=== PATIENT | female | born 1995 | race African-American/Black ===

== ENCOUNTER 2020-02-27 11:23 | Outpatient (CLI) | payer SELFPAY ==
--- NOTE | 2020-02-27 13:14 | Non Stress Test Report ---
Non Stress Test Datetime Report Generated by CPN: 02/27/2020 13:14 DEMOGRAPHIC Test Number: 1 Test Number: 1 EGA NST: 40.1 INDICATION Indication for Study (NST) Other: non reactive in office VITAL SIGNS Temperature - NST: 98.2 Temperature - NST: 98.2 Pulse - NST: 120 Pulse - NST: 120 RESP - NST: 16 RESP - NST: 16 NBPSYS NST: 110 NBPSYS NST: 110 NBPDIA NST: 70 NBPDIA NST: 71 MONITORING Monitor Explained: Monitor Explained; Test Explained; Patient Verbalized Understanding Time on Monitor: 02/27/2020 11:38 Time on Monitor: 02/27/2020 11:42 Time off Monitor: 02/27/2020 12:54 Time off Monitor: 02/27/2020 12:54 NST Duration: 76 NST Duration: 72 NST INTERVENTIONS NST Interventions: PO Hydration; Reposition Patient NST Interventions: PO Hydration; Reposition Patient Physician Notified NST: K Butcher BABY A: [id number] BABY A Movement : Present Movement : Present Contraction Frequency : 2-4 Contraction Frequency : 2-4 FHR Baseline : 40-60 FHR Baseline : 145 Accelerations : 15X15 Accelerations : 15X15 Decelerations : None Decelerations : None Variability : Moderate 6-25bpm Variability : Moderate 6-25bpm NST Review: Meets Criteria for Reactive NST NST Review: Meets Criteria for Reactive NST NST Review and Verified By : Ratna Camacho RN NST Results: Reactive NST Results: Reactive NST COMMENTS NST Comments: K Butcher reviewed strip NST REPORT Report Trigger: Send Report
== END 2020-02-27 13:04 | disposition home or self-care (01) ==
LOC: LC 11:23
PROVIDERS: ATTEND Student in an Organized Health Care Education/Training Program
DX: O48.0 Post-term pregnancy (principal); Z3A.40 40 weeks gestation of pregnancy
CPT/HCPCS: 59025

== ENCOUNTER 2020-03-02 17:47 | Inpatient (IN) | payer OTHER ==
[2020-03-02] MEDS ORDERED: MAG HYDROX/AL HYDROX/SIMETH SUSP 30 ML UDCUP PO PRN (18:07)
[2020-03-02] MEDS ORDERED: DINOPROSTONE 10 MG VAGINAL INSERT.SR PV ONE (18:07)
[2020-03-02] MEDS ORDERED: RINGERS SOLUTION,LACTATED 300 ML IV ONE (18:07)
[2020-03-02] MEDS ORDERED: ACETAMINOPHEN 325 MG TABLET PO PRN (18:07)
[2020-03-02] MEDS ORDERED: OXYTOCIN/0.9 % SODIUM CHLORIDE 30 UNIT/500 ML RTUINJ IV PRN (18:07)
[2020-03-02] MEDS ORDERED: RINGERS SOLUTION,LACTATED 1,000 ML IV PRN (18:07)
[2020-03-02 18:41] LABS: APPEARANCE,URINE CLEAR; BILIRUBIN,URINE NEGATIVE (NEGATIVE); COLOR,URINE YELLOW; GLUCOSE, URINE NEGATIVE (NEGATIVE); KETONES,URINE NEGATIVE (NEGATIVE); LEUKOCYTE ESTERASE,URINE NEGATIVE (NEGATIVE); NITRITE,URINE NEGATIVE (NEGATIVE); PROTEIN,URINE NEGATIVE (NEGATIVE); URINE SPECIFIC GRAVITY 1.011; UROBILINOGEN,URINE NEGATIVE mg/dL (<2.0)
[2020-03-02 18:49] LABS: ABSOLUTE BASOPHILS # (AUTO) 0.1 10^3/uL (0.0-0.2); ABSOLUTE EOSINOPHILS # (AUTO) 0.1 10^3/uL (0.0-0.6); ABSOLUTE LYMPHOCYTES (AUTO) 2.1 10^3/uL (0.5-4.7); ABSOLUTE MONOCYTES (AUTO) 0.9 10^3/uL (0.1-1.4); BASOPHILS % (AUTO) 0.5 % (0-2); EOSINOPHILS % (AUTO) 0.9 % (0-6); HEMATOCRIT 39.5 % (36.0-47.0); HEMOGLOBIN 13.6 g/dL (12.0-15.5); LYMPHOCYTES % (AUTO) 17.3 % (13-45); MEAN CORPUSCULAR HEMOGLOBIN 29.9 pg (27.0-33.4); MEAN CORPUSCULAR HGB CONC 34.3 g/dL (32.0-36.0); MEAN CORPUSCULAR VOLUME 87 fl (80-97); MONOCYTES % (AUTO) 7.1 % (3-13); PLATELET COUNT 214 10^3/uL (150-450); RED BLOOD COUNT 4.53 10^6/uL (3.72-5.28); RED CELL DISTRIBUTION WIDTH 14.4 % (11.5-14.0); SEGMENTED NEUTROPHILS % (AUTO) 74.2 % (42-78); TOTAL CELLS COUNTED % (AUTO) 100 %; WHITE BLOOD COUNT 12.1 10^3/uL (4.0-10.5)
[2020-03-02 19:03] LABS: URINE AMPHETAMINES SCREEN NEGATIVE; URINE BARBITURATES SCREEN NEGATIVE; URINE BENZODIAZEPINES SCREEN NEGATIVE; URINE COCAINE SCREEN NEGATIVE; URINE MARIJUANA (THC) SCREEN NEGATIVE; URINE METHADONE SCREEN NEGATIVE; URINE PHENCYCLIDINE SCREEN NEGATIVE
[2020-03-02] MEDS ORDERED: DINOPROSTONE 10 MG VAGINAL INSERT.SR ONE (19:44)
--- NOTE | 2020-03-03 01:28 | Admission Physical ---
Datetime Report Generated by CPN: 03/03/2020 01:28 CURRENT ADMISSION Chief Complaint: Scheduled Induction of Labor; Other Chief Complaint Other: post dates Indication for Induction: Post Dates Admit Impression : Postterm, Intrauterine ; No Active Labor; Intact Membranes Admit Plan: Admit to Unit; Initiate Labor Induction Protocol ALLERGIES Medication Allergies: No Medication Allergies: No Known Allergies (03/02/2020) Latex: No Latex Allergies OBSTETRICAL HISTORY EDC: 02/26/2020 00:00 : 1 Para: 0 Term: 0 : 0 SAB: 0 IAB: 0 Ectopic: 0 Livin Cesareans: 0 VBACs: 0 Multiple Births: 0 Obstetrical History Comments: G1: current SEE RECORDS Alcohol: No Marijuana : No Cocaine: No Other Illicit Drugs: No Cigarettes: Never Smoker. [id number] MEDICAL HISTORY Pulmonary Disease (Asthma, TB): Yes Hosp/Surgery: Yes Medical History Comments: cyst removed from back 2011, asthma PHYSICAL EXAM General: Normal HEENT: Normal Neurologic: Normal Thyroid: Normal Heart: Normal Lungs: Normal Breast: Deferred Back: Normal Abdomen: Normal Genitourinary Exam: Normal Extremities: Normal DTRs: Normal Pelvic Type: Adequate Vital Signs: Reviewed VAGINAL EXAM Dilatation: 0 Effacement: 0 Station: -2 MEMBRANES Pooling: Negative Membranes: Intact FETUS A EGA: 40.6 Monitoring: External US FHR- Baseline: 140 Variability: Moderate 6-25bpm Decelerations: None FHR Category: Category I Estimated Weight (gm): 4000 Presentation: Vertex Admit Comment: admit for induction PLANS FOR LABOR AND DELIVERY Labor and Delivery: None Pain Management: Epidural Feeding Preference: Breast Benefit of Breast Feed Discussed: Yes INFORMED CONSENT Signature: with User ID: [email or web address]
[2020-03-03] MEDS ORDERED: ZOLPIDEM TARTRATE 5 MG TABLET ONE (01:44)
[2020-03-03] MEDS: ZOLPIDEM TARTRATE 5 MG TABLET PO PRN (01:48)
[2020-03-03] MEDS ORDERED: OXYTOCIN/0.9 % SODIUM CHLORIDE 0 UNIT/0 ML RTUINJ ONE ×2 (02:59→10:51)
[2020-03-03] MEDS ORDERED: MISOPROSTOL 0.2 MG TABLET ONE ×3 (02:59→19:37)
[2020-03-03] MEDS ORDERED: EPHEDRINE SULFATE INJ 50 MG/1 ML AMPULE ONE ×2 (02:59→11:42)
[2020-03-03] MEDS ORDERED: LIDOCAINE 1% INJ-PF (10 MG/ML) 30 ML SDV ONE ×2 (02:59→10:51)
[2020-03-03] MEDS ORDERED: OXYTOCIN 10 UNIT/ML VIAL ONE ×4 (02:59→19:39)
[2020-03-03] MEDS ORDERED: FENTANYL/BUPIVACAINE/NS/PF 0 MCG/0 ML RTUINJ EPI ONE (02:59)
[2020-03-03] MEDS ORDERED: ROPIVACAINE HCL 0.2% INJ/PF (2 MG/ML) 20 ML SDV ONE (03:00)
--- NOTE | 2020-03-03 10:31 | L&D Progress Notes ---
PROGRESS NOTES Datetime Report Generated by CPN: 03/03/2020 10:31 PROGRESS NOTE Comment: S: Pt breathing with contractions, has multiple questions about epidural placement and poc O:vss, cat II tracing, cervix as stated after cervidil removal by RN A: IUP @ 11e0l-SET secondary to post dates P: Discussed and evaluated strip with Dr. Ramachandran who agrees with no starting pitocin at this time. Will start bolus and call anesthesia for epidural placement and maki bulb depending on cervix after epidural. Consider AROM if more dilated after epidural placement. Had long discussion with patient about strip and options for continuing induction of labor. Pt declines vaginal exam prior to epidural placement, will proceed with bolus then reassess after epidural placement. Dr. Ramachandran remains in unit aware of status, plan and tracing VAGINAL EXAM Dilatation: 0 Effacement: 0 Station: -2 LAST VAGINAL EXAM-NURSING Nursing Exam Dilitation: 1.5 Nursing Exam Effacement: 80 Nursing Exam Station: -2 Nursing Exam Contractions: pt unaware of contractions MEMBRANES Pooling: Negative Membranes: Intact FETUS A : 40.6 Estimated Weight (gm): 4000 Presentation: Vertex SIGNATURE SIGNATURE: [id number];[id number];[id number] Assignment: Elsi Ramachandran MD Signature: with User ID: Quique : with User ID: Quique
[2020-03-03] MEDS ORDERED: FENTANYL/BUPIVACAINE/NS/PF 300 MCG/150 ML RTUINJ EPI ONE (11:42)
--- NOTE | 2020-03-03 13:05 | L&D Progress Notes ---
PROGRESS NOTES Datetime Report Generated by CPN: 03/03/2020 13:05 PROGRESS NOTE Impression Other: IUP @ 40w6d Procedures: Scalp Electrode; Sterile Vag Exam Plan: Continue Present Management Informed Consent Obtained: Vaginal Delivery; Section Delivery; Induction of Labor; Risks, Benefits and Alternatives Discussed Vital Signs : Reviewed; Within Normal Limits Comment: S: comfortable and pain free since epidural placement O: VSS, cat II tracing, cervix and contractions as stated A: IUP @ 40w6d- IOL stable and progressing on her own after cervidil removal AROM-clear fluid tolerated well, + scalp stimulation FSE placed without difficutlty P:Continue position changes. Dr. Ramachandran to evaluate for need of primary at this time (remote from delivery,persitent cat II tracing) VAGINAL EXAM Dilatation: 0 Effacement: 0 Station: -2 Contractions: q3-6min LAST VAGINAL EXAM-NURSING Nursing Exam Dilitation: 3.5 Nursing Exam Effacement: 100 Nursing Exam Station: -2 Nursing Exam Contractions: pt unaware of contractions MEMBRANES Pooling: Negative Membranes: Ruptured Amniotic Fluid Color: Clear FETUS A Monitoring: External US Decelerations: Late FHR Category: Category II : 40.6 Estimated Weight (gm): 4000 Presentation: Vertex SIGNATURE SIGNATURE: [id number];[id number];[id number] Assignment: Elsi Ramachandran MD Signature: with User ID: Quique : with User ID: Quique
[2020-03-03] MEDS ORDERED: BUPIVACAINE HCL 0.25 % INJ/PF (2.5 MG/1 ML) 30 ML VIAL ONE (16:31)
[2020-03-03] MEDS ORDERED: CEFAZOLIN 2 GM/D5W RTU 2 GM/50 ML RTUPB IV ONE (19:24)
[2020-03-03] MEDS ORDERED: CITRIC ACID/SODIUM CITRATE ORAL SOLN 15 ML UDCUP ONE (19:35)
[2020-03-03] MEDS ORDERED: METHYLERGONOVINE MALEATE INJ/PF 0.2 MG/1 ML AMPULE ONE (19:37)
[2020-03-03] MEDS ORDERED: LIDOCAINE 2% INJ-PF (20 MG/ML) 10 ML AMPUL ONE (19:39)
[2020-03-03] MEDS ORDERED: KETOROLAC TROMETHAMINE INJ/PF 30 MG/1 ML SDV ONE (19:39)
[2020-03-03] MEDS ORDERED: FENTANYL CITRATE INJ/PF 100 MCG/2 ML AMPUL ONE (19:39)
[2020-03-03] MEDS ORDERED: MIDAZOLAM 2 MG/2 ML INJ ONE (19:39)
[2020-03-03] MEDS ORDERED: OXYTOCIN/0.9 % SODIUM CHLORIDE 30 UNIT/500 ML RTUINJ ONE (19:40)
[2020-03-03] MEDS ORDERED: ONDANSETRON HCL INJ/PF 4 MG/2 ML SDV ONE (19:40)
[2020-03-03] MEDS ORDERED: KETAMINE HCL INJ 500 MG/10 ML VIAL ONE (19:40)
[2020-03-03] MEDS ORDERED: ACETAMINOPHEN 1,000 MG/100 ML RTUPB IV ONE (19:40)
[2020-03-03] MEDS ORDERED: PROPOFOL INJ 200 MG/20 ML VIAL IV ONE (20:37)
[2020-03-03] MEDS ORDERED: MORPHINE SULFATE 10 MG/ML INJ ONE (21:32)
[2020-03-03] MEDS ORDERED: PROMETHAZINE HCL INJ 25 MG/1 ML VIAL ONE (22:03)
[2020-03-03] MEDS ORDERED: PROMETHAZINE HCL INJ 25 MG/1 ML VIAL IV PRN (22:28)
[2020-03-03] MEDS ORDERED: DIPH/PERTUSS(ACELL)/TETANUS VAC/PF 0.5 ML SYR (>=10YO) IM PRN (22:28)
[2020-03-03] MEDS ORDERED: OXYTOCIN/0.9 % SODIUM CHLORIDE 30 UNIT/500 ML RTUINJ IV PRN (22:28)
[2020-03-03] MEDS ORDERED: RINGERS SOLUTION,LACTATED 1,000 ML IV PRN (22:28)
[2020-03-03] MEDS ORDERED: HYDROMORPHONE HCL INJ/PF 2 MG/ML AMPULE IV PRN (22:28)
[2020-03-03] MEDS ORDERED: MEASLES,MUMPS&RUBELLA VACC/PF 0.5 ML VIAL SUBCUT PRN (22:28)
[2020-03-03] MEDS ORDERED: ACETAMINOPHEN 325 MG TABLET PO PRN (22:28)
[2020-03-03] MEDS ORDERED: LORAZEPAM INJ 2 MG/1 ML VIAL IV ONE (22:31)
[2020-03-03] MEDS ORDERED: METHYLERGONOVINE MALEATE 0.2 MG TABLET ONE (22:39)
[2020-03-03] MEDS ORDERED: LORAZEPAM INJ 2 MG/1 ML VIAL ONE (22:39)
--- NOTE | 2020-03-03 23:01 | Delivery Summary ---
Del Sum A-C Datetime Report Generated by CPN: 03/03/2020 23:01 DELIVERY PERSONNEL DELIVERY PERSONNEL: [id number] Delivery Doctor:: Elsi Ramachandran MD WHITE SHOE RAGGER:: Marie Coronel CRNA Bar Pointer:: Elinor Kathleen RN Neonatal Nurse Practitioner:: SHANIKA Byrd Nursery Nurse:: Etta Enriquez RN Primary Education Professor/WEDDING DAY COORDINATOR: ST Gianluca Primary Education Professor/WEDDING DAY COORDINATOR: Nesha Connelly, SUPERVISOR T[employer] CLEANING MATERNAL INFORMATION Delivery Anesthesia: General Medications After Delivery: Pitocin 30 Units in 500ml NS/D5W; Methergine 0.2mg IM Delivery QBL: 1120 Maternal Complications: None LABOR SUMMARY EDC: 02/26/2020 00:00 No. Babies in Womb: 1 Attempted: No Labor Anesthesia: Epidural LABOR INFORMATION Cervical Ripening Agents: Cervidil Oxytocin: Induction Group B Beta Strep: Negative Antibiotics # of Doses: 0 Name of Antibiotic Given: n/a MEMBRANES Membranes Rupture Method: Artificial Rupture of Membranes: 03/03/2020 13:41 Length of Rupture (hr): 6.92 Amniotic Fluid Color: Clear Amniotic Fluid Amount: Moderate Amniotic Fluid Odor: Normal STAGES OF LABOR Stage 3 hr: 0 Stage 3 min: 1 VAGINAL DELIVERY Episiotomy: None Laceration #1: None Laceration Extension #1: N/A Laceration Repair: Not Applicable Sponge Count Correct: N/A Sharps Count Correct: N/A CSECTION DELIVERY Primary Indication: Nonreassuring Status CSection Urgency: Non-Scheduled CSection Incidence: Primary Labor: No Labor Elective: N/A CSection Incision: Lower Uterine Transverse BABY A INFORMATION Delivery Date/Time: 03/03/2020 20:36 Method of Delivery: Nurse Controlled Delivery: No Born in Route : No : N/A Forceps: N/A Vacuum Extraction: N/A Shoulder Dystocia : No PRESENTATION/POSITION BABY A Presentation: Cephalic Cephalic Presentation: Vertex Breech Presentation: N/A PLACENTA INFORMATION BABY A Placenta Delivery Time : 03/03/2020 20:37 Placenta Method of Delivery: Manual Removal Placenta Status: Delivered SCORES BABY A Heart Rate 1 min: Slow, Below 100 bpm Resp Effort 1 min: Slow, Irregular Reflex Irritability 1 min: No Response Muscle Tone 1 min: Flaccid Color 1 min: Blue/Pale Resuscitation Effort 1 min: Tactile Stimulation; Oxygen; PPV/NCPAP SCORE 1 MIN: 2 Heart Rate 5 min: >100 bpm Resp Effort 5 min: Slow, Irregular Reflex Irritability 5 min: [place] Muscle Tone 5 min: Some Flexion of Extremities Color 5 min: Body [place], Extremities Blue Resuscitation Effort 5 min: Tactile Stimulation; Oxygen; PPV/NCPAP SCORE 5 MIN: 6 Heart Rate 10 min: >100 bpm Resp Effort 10 min: Good Cry Reflex Irritability 10 min: Cough or Sneeze or Pulls Away Muscle Tone 10 min: Some Flexion of Extremities Color 10 min: Body [place], Extremities Blue Resuscitation Effort 10 min: Tactile Stimulation; Oxygen SCORE 10 MIN: 8 INFORMATION BABY A Gestational Age at Delivery: 40.6 Gestational Status: Full Term- 39- 40.6 Weeks Outcome : Liveborn Condition : Stable Sex: Male IDENTIFICATION BABY A Infant Verification Date/Time: 03/03/2020 21:29 ID Band Number: [id number] Mother's Name Verified: Yes RN Verifying : Malika Kathleen, RN/ R. Angelaelishamichaeljared, RN WEIGHT/LENGTH BABY A Infant Birthweight (gm): 4216 Infant Weight (lb): 9 Weight (oz): 5 Length (in): 22.00 Infant Length (cm): 55.88 CORD INFORMATION BABY A No. Cord Vessels: 3 Nuchal Cord : N/A Cord Blood Taken: Yes-For Eval (Mom's Blood Type - or O+) Suction: Mouth; Nose ASSESSMENT BABY A Skin to Skin: No BABY B INFORMATION : N/A
--- NOTE | 2020-03-03 23:01 | Birth Certificate Data ---
Cert Data Datetime Report Generated by PRAVIN: 03/03/2020 23:01 CERTIFICATE DATA 47a. Care: Yes (02/27/2020 11:27:Dee Gurrola RN) 47b. Date of First Visit: 10/14/2019 00:00 (02/27/2020 11:27:Dee Gurrola RN) 47c. Date of Last Visit: 03/02/2020 00:00 (02/27/2020 11:27:Dee Gurrola RN) 47d. Number of Visits: 10 (02/27/2020 11:27:Dee Gurrola RN) 48a. Number of Prev Live Births: 0 (02/27/2020 11:27:Dee Gurrola RN) 48b. Now Livin (02/27/2020 11:27:Dee Gurrola RN) 48c. Live Births Now : 0 (02/27/2020 11:27:QS system process) 48e. Losses: 0 (02/27/2020 11:27:Dee Gurrola RN) RISK FACTORS IN THIS 49a. Diabetes: No (02/27/2020 11:27:Taylor Lr RN) 49b. Hypertension: No (02/27/2020 11:27:Taylor Lr RN) 49c. Previous Births: 0 (02/27/2020 11:27:Dee Gurrola RN) 49d. Stillborns: No (02/27/2020 11:27:Taylor Lr RN) 49d. IUGR: No (02/27/2020 11:27:Taylor Lr RN) 49e. Infertility Treatment: No (02/27/2020 11:27:Taylor Lr RN) 49f. Previous Cesareans: 0 (02/27/2020 11:27:Dee Gurrola RN) Mother's Height 50b. Height Inches: 68 (03/03/2020 21:03:QS system process) Mother's Weight 51a. Pre- Weight (lbs): 190 (02/27/2020 11:27:Dee Gurrola RN) 51b. Weight at Delivery (lbs): 205 (03/03/2020 21:03:QS system process) 52. Dt Last Normal Menses Began: 06/28/2019 00:00 (02/27/2020 11:27:Dee Gurrola RN) Infections Present/Treated 53a. Gonorrhea: No (02/27/2020 11:27:Taylor Lr RN) Results this Hospital Visit : Negative (02/27/2020 11:27:Dee Gurrola RN) 53b. Syphilis: No (02/27/2020 11:27:Taylor Lr RN) Results this Hospital Visit: NONREACTIVE (03/02/2020 18:26:QS system process) 53c. Chlamydia: No (02/27/2020 11:27:Taylor Lr RN) Results this Hospital Visit: Negative (02/27/2020 11:27:Dee Gurrola RN) 53d. Hepatitis B: No (02/27/2020 11:27:Taylor Lr RN) Results this Hospital Visit: Negative (02/27/2020 11:27:Dee Gurrola RN) 53h. Mother Tested for HBsAG: Yes (02/27/2020 11:27:Dee Gurrola RN) 53i. Date Tested: 10/14/2019 00:00 (02/27/2020 11:27:Dee Gurrola RN) 53j. Test Result: Negative (02/27/2020 11:27:Dee Gurrola RN) Cigarette Smoking 55a. 3 Months Before Preg - Ci (02/27/2020 11:27:Dee Gurrola RN) 55b. 1st Trimester of Preg- Ci (02/27/2020 11:27:Dee Gurrola RN) 55c. 2nd Trimester of Preg- Ci (02/27/2020 11:27:Dee Gurrola RN) 55d. 3rd Trimester of Preg- Ci (02/27/2020 11:27:Dee Gurrola RN) Onset of Labor 56a. PROM >12 Hrs: 6.92 (02/27/2020 11:27:QS system process) 57a. Induction of Labor: Induction (02/27/2020 11:27:Elinor Kathleen RN) 57a. Induction of Labor: Cervidil (03/02/2020 19:49:Taylor Lr RN) 57c. Non-Vertex Presentation A: Vertex (02/27/2020 11:27:Elinor Kathleen RN) 57f. Mat [place] or Temp >100.4: 99.4 (02/27/2020 11:27:lEinor Kathleen RN) 57g. Moderate/Heavy Meconium: Clear (02/27/2020 11:27:Elinor Kathleen RN) 57h. Intolerance of Labor: Nonreassuring Status (02/27/2020 11:27:Elinor Kathleen RN) 57i. Epidural/Spinal Anesthesia: Epidural (02/27/2020 11:27:Elinor Kathleen RN) Method of Delivery 58a. Forceps - Unsuccessful A: N/A (02/27/2020 11:27:Aundrea Granger RN) 58b. Vacuum - Unsuccessful A: N/A (02/27/2020 11:27:Aundrea Granger RN) 58c. Presentation at 58c. Presentation at - A : Vertex (02/27/2020 11:27:Elinor Katlheen RN) 58c. Presentation at - A : N/A (02/27/2020 11:27:Elinor Kathleen RN) 58c. Presentation at - A : Cephalic (03/02/2020 19:48:Taylor Lr RN) Final Route and Method of Del 58d. Baby A Route/Delivery: (02/27/2020 11:27:SHANIKA Blackman) 58e. Trial of Labor Attempted: No (02/27/2020 11:27:Elinor Kathleen RN) 58e. Trial of Labor Attempted A: N/A (02/27/2020 11:27:Aundrea Granger RN) 58e. Trial of Labor Attempted B: N/A (02/27/2020 11:27:Elinor Kathleen, RN) Maternal Morbidity 59b. 3rd or 4th Degree Lacs: None (02/27/2020 11:27:Kingstonedvinaracelis Kathleen, RN) Birthweight Baby A: 4216 (02/27/2020 11:27:SHANIKA Blackman) 60a. Pounds : 9 (02/27/2020 11:27:QS system process) 60b. Ounces: 5 (02/27/2020 11:27:QS system process) 61. GA at Delivery Baby A: 40.6 (02/27/2020 11:27:Ignacio Mejia, POLE PEELING MACHINE OPERATOR) : Full Term- 39- 40.6 Weeks (02/27/2020 11:27:QS system process) 62a. 5 Minute Baby A: 6 (02/27/2020 11:27:QS system process) 62b. 10 Minute Baby A: 8 (02/27/2020 11:27:QS system process)
--- NOTE | 2020-03-03 23:19 | Operative Report ---
Operative Report DATE OF SURGERY: 03/03/20 PREOPERATIVE DIAGNOSIS: Intrauterine at 41 weeks EGA: post dates. NO n-reassuring heart tracing remote from delivery POSTOPERATIVE DIAGNOSIS: Same as above OPERATION: Primary section SURGEON: TYRONE CAROLINA ANESTHESIA: GA TISSUE REMOVED OR ALTERED: Placenta COMPLICATIONS: None ESTIMATED BLOOD LOSS: 800cc INTRAOPERATIVE FINDINGS: Normal appearing uterus, bilateral fallopian tubes and ovaries. Viable male in vertex presention: occiput posterior. CLear amniotic fluid. PROCEDURE: IV fluids: per anesthesia record Urinary output: 200 cc clear yellow urine Findings: Normal-appearing uterus bilateral fallopian tubes and ovaries. Viable male infant. Grossly normal appearing placenta. Position: To recovery room in stable condition Description of procedure: The patient was taken to the operating room and spinal anesthesia found to be inadequate. General anesthesia was administered and found to be adequate. She was then placed on the OR table in the supine position with a slight leftward tilt. Patient was prepped and draped in usual sterile fashion. Ancef 2 gms was given IV prior to the procedure for infection prophylaxis. Timeout was taken. A Pfannenstiel skin incision was then made approximately 3 cm above the pubic symphysis and carried down to level the rectus fascia. The rectus fascia was then nicked in the midline with a scalpel and the fascial incision was extended laterally with use of curved Espinoza scissors. The rectus fascia was then grasped with 2 Kocker clamps elevated and the underlying rectus muscle was dissected off both bluntly and sharply. Any bleeding controlled with cautery. The rectus muscles were then split in the midline and the peritoneum was entered. The peritoneal incision was then extended by manually stretching the peritoneum. The bladder blade was positioned. The bladder was noted to be out of harm's way. A scalpel was then used in the lower uterine for the hysterotomy, slowly until amniotomy was obtained a large amount of fluid was noted. The uterine incision w as then manually stretched. The was noted to be in vertex postion -deep in the pelvis. Using a hand deep in pelvis and the assistance of a sterile hand from below by RN, the head was elevated and brought to the hysterotomy incision. The head then delivered. The shoulders and the rest of the body followed immediately. The cord was cut clamped and the infant was handed off to the nurse awaiting. Infant attempted to cry prior to hand off. Oral and nasally suctioned while cord was clamped and cut. The placenta was manually delivered. Using a lap gauze the uterus was cleared of all clots and debris. The uterus was then exteriorized and a bladder blade was repositioned. The uterine incision was then closed with 0 Chromic suture in a running locked fashion. A second layer of the same suture was used in a running locked imbricated fashion. The uterine incision was inspected and noted to be hemostatic. The posterior aspect of the uterus was then inspected and anatomy was seen as above. The uterus was returned to its normal anatomic position within the abdominal cavity. Warm saline irrigation was used to clear all clots and debris from the abdomen. The uterine incision was inspected once more and noted to remain hemostatic. The bladder blade was removed and the peritoneum was closed with 2-0 chromic in a running fashion. The rectus muscles were then reapproximated and the rectus fascia was closed with a #0 looped PDS in a running fashion. The subcutaneous tissue was then inspected and any bleeding was controlled with Bovie electrocautery. The subcutaneous tissue was then closed with 2-0 Plain Gut suture in a running fashion. The skin was then closed with 4-0 Monocryl in a running subcuticular fashion. The skin incision was then clean dried and Dermabond was applied over the skin incision. All instrument sponge and needle counts were correct x3 for the procedure the patient tolerated the procedure well. She will proceed to recovery room in stable condition
--- NOTE | 2020-03-03 23:23 | PDOC DELIVERY SUMMARY ---
Delivery Summary - Maternal Hx : I - Delivery Presentation: Vertex Heart Rate Monitoring: Externally Uterine Contraction Monitoring: External Pattern: Late Decels - Minimal variabilty with periods of absent variabilty requiring intervention Support Person Present: Yes Location: OR : Emergency Placenta: Within Normal Limits Placenta Description: Manually delivered intact. Calcified areas noted Nuchal Cord: No Estimated Blood Loss: 800cc - Medications Type of Anesthesia:: GA - Delivery Medications Delivery Meds: Methergine 0.2mg IM - Delivery Personnel RN: DARRYL MONK MD: TYRONE CAROLINA
[2020-03-04] MEDS: METHYLERGONOVINE MALEATE 0.2 MG TABLET PO SCH ×5 (02:31→23:00)
[2020-03-04] MEDS ORDERED: RINGERS SOLUTION,LACTATED 1,000 ML IV PRN (03:52)
[2020-03-04] MEDS: OXYCODONE-ACETAMINOPHEN 5-325 MG TABLET PO PRN ×3 (04:06→16:12)
[2020-03-04] MEDS ORDERED: METHYLERGONOVINE MALEATE 0.2 MG TABLET ONE ×2 (05:29→22:29)
[2020-03-04] MEDS: KETOROLAC TROMETHAMINE INJ/PF 30 MG/1 ML SDV IV SCH (05:37)
[2020-03-04 07:01] LABS: HEMATOCRIT 33.9 % (36.0-47.0); HEMOGLOBIN 11.6 g/dL (12.0-15.5); MEAN CORPUSCULAR HEMOGLOBIN 30.1 pg (27.0-33.4); MEAN CORPUSCULAR HGB CONC 34.1 g/dL (32.0-36.0); MEAN CORPUSCULAR VOLUME 88 fl (80-97); PLATELET COUNT 185 10^3/uL (150-450); RED BLOOD COUNT 3.83 10^6/uL (3.72-5.28); RED CELL DISTRIBUTION WIDTH 14.1 % (11.5-14.0); WHITE BLOOD COUNT 22.9 10^3/uL (4.0-10.5)
[2020-03-04] MEDS: PRENATAL VITAMIN W DHA CAPSULE PO SCH (09:17)
[2020-03-04] MEDS: DOCUSATE SODIUM 100 MG CAPSULE PO SCH ×2 (09:17→18:19)
--- NOTE | 2020-03-04 11:53 | PDOC PROGRESS REPORT ---
Subjective-OB Progress Note for:: 03/04/20 Subjective: Pt is resting, pain is well controlled. She still has FC to bsd with dark concentrated urine. IV still at 125cc/hr. She reports reg diet, no flatus. Physical Exam (OB) Vital Signs: Temp Pulse Resp BP Pulse Ox 98.4 F 106 H 14 114/71 99 03/04/20 08:04 03/04/20 08:04 03/04/20 08:04 03/04/20 08:04 03/04/20 08:04 Intake & Output 03/03/20 03/04/20 03/05/20 06:59 06:59 06:59 Intake Total 450 Output Total 450 Balance 0 Weight 92.5 kg - Incision: Well Approximated Closure Type: Dermabond - Maternal Morbidity 59. Maternal Morbidity (serious complications experinced by the mother associated with labor and delivery: None of the above - Lochia Lochia Amount: Scant < 10 ml Lochia Color: Rubra/Red - Abdomen Description: Soft, Round Hernia Present: No Fundal Description: Firm, Midline Fundal Height: u/u - u/2 Objective-Diagnostic Laboratory: 03/04/20 06:00 03/04/20 06:00 WBC 22.9 H RBC 3.83 Hgb 11.6 L Hct 33.9 L MCV 88 MCH 30.1 MCHC 34.1 RDW 14.1 H Plt Count 185 Assessment and Plan(PN) - Assessment and Plan (1) Encounter for induction of labor Is this a current diagnosis for this admission?: Yes (2) Non-reassuring heart tones, delivered, current hospitalization Is this a current diagnosis for this admission?: Yes (3) S/P primary low transverse Is this a current diagnosis for this admission?: Yes Plan:: RN to administer bolus of IVF - Time Spent with Patient Time with patient: Less than 15 minutes Medications reviewed and adjusted accordingly: Yes - Disposition Anticipated Discharge Disposition: Home, Self Care Anticipated Discharge Timeframe: within 24 hours
[2020-03-04] MEDS ORDERED: DIPH/PERTUSS(ACELL)/TETANUS VAC/PF 0.5 ML SYR (>=10YO) IM PRN (13:00)
[2020-03-04] MEDS ORDERED: PROMETHAZINE HCL INJ 25 MG/1 ML VIAL IV PRN (13:00)
[2020-03-04] MEDS ORDERED: MEASLES,MUMPS&RUBELLA VACC/PF 0.5 ML VIAL SUBCUT PRN (13:00)
[2020-03-04] MEDS ORDERED: RINGERS SOLUTION,LACTATED 500 ML IV PRN (13:07)
[2020-03-04] MEDS: IBUPROFEN 800 MG TABLET PO SCH ×2 (16:13→22:56)
[2020-03-04] MEDS ORDERED: IBUPROFEN 800 MG TABLET PO SCH ×2 (22:00)
[2020-03-05] MEDS: OXYCODONE-ACETAMINOPHEN 5-325 MG TABLET PO PRN ×4 (00:30→23:11)
[2020-03-05] MEDS: ZOLPIDEM TARTRATE 5 MG TABLET PO PRN (02:20)
[2020-03-05] MEDS ORDERED: METHYLERGONOVINE MALEATE 0.2 MG TABLET ONE (05:04)
[2020-03-05] MEDS: METHYLERGONOVINE MALEATE 0.2 MG TABLET PO SCH (05:09)
[2020-03-05] MEDS: IBUPROFEN 800 MG TABLET PO SCH ×3 (05:09→21:51)
[2020-03-05] MEDS: SIMETHICONE 80 MG TAB.CHEW PO PRN ×3 (05:10→23:09)
--- NOTE | 2020-03-05 09:24 | PDOC PROGRESS REPORT ---
Subjective-OB Progress Note for:: 03/05/20 Subjective: pt not moving well, in alot of pain, + gas, no help at home, hsb deployed and lives in a apartment with stairs, anxiety about going home, will have landscape architect and planner see her, breast and bottle Physical Exam (OB) Vital Signs: Temp Pulse Resp BP Pulse Ox 98.4 F 111 H 16 114/70 98 03/05/20 08:00 03/05/20 08:00 03/05/20 08:00 03/05/20 08:00 03/05/20 08:00 Intake & Output 03/04/20 03/05/20 03/06/20 06:59 06:59 06:59 Intake Total 450 2420 120 Output Total 450 500 Balance 0 1920 120 - PIH/Pre-Eclampsia DTR's: 2 + Clonus: Negative Headache: Absent Epigastric Pain: No Visual Changes: No - Dressing Removed: Yes Incision: Well Approximated Closure Type: Surgical Glue - Maternal Morbidity 59. Maternal Morbidity (serious complications experinced by the mother associated with labor and delivery: None of the above - Lochia Lochia Amount: Scant < 10 ml Lochia Color: Rubra/Red - Abdomen Description: Soft, Round Hernia Present: No Fundal Description: Firm, Midline Fundal Height: u/u - u/2 Objective-Diagnostic Laboratory: 03/04/20 06:00 Assessment and Plan(PN) - Assessment and Plan (1) Encounter for induction of labor Is this a current diagnosis for this admission?: Yes (2) Non-reassuring heart tones, delivered, current hospitalization Is this a current diagnosis for this admission?: Yes (3) S/P primary low transverse Is this a current diagnosis for this admission?: Yes - Time Spent with Patient Time with patient: Less than 15 minutes Medications reviewed and adjusted accordingly: Yes - Disposition Anticipated Discharge Disposition: Home, Self Care Anticipated Discharge Timeframe: within 24 hours - discharge home in AM, landscape architect and planner, friend going to take her home
[2020-03-05] MEDS: PRENATAL VITAMIN W DHA CAPSULE PO SCH (11:04)
[2020-03-05] MEDS: DOCUSATE SODIUM 100 MG CAPSULE PO SCH ×2 (11:05→18:24)
[2020-03-05 17:01] LABS: HEMATOCRIT 33.8 % (36.0-47.0); HEMOGLOBIN 11.4 g/dL (12.0-15.5); MEAN CORPUSCULAR HEMOGLOBIN 29.6 pg (27.0-33.4); MEAN CORPUSCULAR HGB CONC 33.6 g/dL (32.0-36.0); MEAN CORPUSCULAR VOLUME 88 fl (80-97); PLATELET COUNT 231 10^3/uL (150-450); RED BLOOD COUNT 3.84 10^6/uL (3.72-5.28); RED CELL DISTRIBUTION WIDTH 14.6 % (11.5-14.0); WHITE BLOOD COUNT 20.8 10^3/uL (4.0-10.5)
[2020-03-05 17:02] LABS: INTERNATIONAL RATION (INR) 0.99; PROTHROMBIN TIME 13.3 SEC (11.4-15.4)
[2020-03-05 17:03] LABS: PARTIAL THROMBOPLASTIN TIME 30.4 SEC (23.5-35.8)
[2020-03-05] MEDS ORDERED: DEXTROSE 50%-WATER 25 GM/50 ML DISP.SYRIN IV PRN ×2 (17:39)
[2020-03-05] MEDS ORDERED: DEXTROSE 40% GEL 15 GM TUBE PO PRN ×2 (17:39)
[2020-03-05] MEDS ORDERED: GLUCAGON,HUMAN RECOMB 1 MG INJ SUBCUT PRN (17:39)
[2020-03-05] MEDS ORDERED: ONDANSETRON HCL INJ/PF 4 MG/2 ML SDV IV PRN (17:46)
[2020-03-05] MEDS: DEXTROSE 5%-1/2 NORMAL SALINE 1,000 ML IV PRN (18:07)
[2020-03-05 18:28] LABS: ANION GAP 5 (5-19); BLOOD UREA NITROGEN 7 mg/dL (7-20); CALCIUM 8.5 mg/dL (8.4-10.2); CARBON DIOXIDE 24 mmol/L (22-30); CHLORIDE 108 mmol/L (98-107); GLUCOSE 81 mg/dL (75-110); POTASSIUM 3.7 mmol/L (3.6-5.0)
--- NOTE | 2020-03-05 21:31 | RADIOLOGY REPORT (SQ) ---
EXAM DESCRIPTION: CT ABDOMEN PELVIS WITH IV CONTRAST COMPLETED DATE/TME: 03/05/2020 17:35 CLINICAL HISTORY: 24 years, Female, vomiting, POD#2, hypoactive bowel sounds COMPARISON: None. TECHNIQUE: 401 Images stored on PACS. All CT scanners at this facility use dose modulation, iterative reconstruction, and/or weight based dosing when appropriate to reduce radiation dose to as low as reasonably achievable (ALARA). [facility]: Dose Right [facility]: CareDose [facility]: Dose Right [facility]: Teradose 4D [facility]: [employer] LIMITATIONS: None. FINDINGS: Limited evaluation of the lung bases shows a tiny left pleural effusion. Subcutaneous edema suggesting anasarca. Osseous structures are grossly intact. The liver, spleen, adrenal glands, pancreas, kidneys are unremarkable. Gallbladder is present. There is no evidence for bowel obstruction. Large amount stool in the colon. Normal appendix. There is no free air. There is no extravasation of oral contrast. The patient is status post recent . Diffusely enlarged and uterus is noted. There is a small amount of subcutaneous emphysema at site with a few foci of extraluminal air in the right lower quadrant. A few foci of air in the region of the endometrial canal. Inflammatory changes in the pelvis may in part be postoperative. Trace of hyperdense free fluid consistent with trace of what is likely hemoperitoneum along the right paracolic gutter. No other free fluid.. Prominent vasculature of the uterine myometrium. IMPRESSION: Diffusely enlarged uterus consistent with recent status. Prominent uterine vasculature. A small amount of air within the endometrial canal, however the endometrium is poorly defined. Inflammatory changes in the pelvis, which may be postoperative in nature. Developing infectious or inflammatory process is not excluded. Trace of hyperdense free fluid along the right paracolic gutter, consistent with a trace of hemoperitoneum. Subcutaneous air along the anterior pelvic wall consistent with . Tiny left pleural effusion. Developing anasarca is suspected.. TECHNICAL DOCUMENTATION: Quality ID # 436: Final reports with documentation of one or more dose reduction techniques (e.g., Automated exposure control, adjustment of the mA and/or kV according to patient size, use of iterative reconstruction technique) copyright 2011 [employer]- All Rights Reserved
[2020-03-05] MEDS: KETOROLAC TROMETHAMINE INJ/PF 30 MG/1 ML SDV IV SCH (21:46)
[2020-03-06] MEDS: ZOLPIDEM TARTRATE 5 MG TABLET PO PRN (03:14)
[2020-03-06] MEDS: DEXTROSE 5%-1/2 NORMAL SALINE 1,000 ML IV PRN (03:15)
[2020-03-06] MEDS: SIMETHICONE 80 MG TAB.CHEW PO PRN (05:52)
[2020-03-06] MEDS: IBUPROFEN 800 MG TABLET PO SCH ×3 (05:53→22:57)
--- NOTE | 2020-03-06 09:49 | PDOC PROGRESS REPORT ---
Subjective-OB Progress Note for:: 03/06/20 Subjective: OOB walking, eating and drinking, no nausea, no illeus, abd soft, still has pain in incision area, instructed to walk more today, consider MOM Physical Exam (OB) Vital Signs: Temp Pulse Resp BP Pulse Ox 97.9 F 99 18 103/68 98 03/06/20 07:43 03/06/20 07:43 03/06/20 07:43 03/06/20 07:43 03/06/20 07:43 Intake & Output 03/05/20 03/06/20 03/07/20 06:59 06:59 06:59 Intake Total 2420 1260 Output Total 500 Balance 1920 1260 - PIH/Pre-Eclampsia DTR's: 1 + Clonus: Negative Headache: Absent Epigastric Pain: No Visual Changes: No - Dressing Removed: No Incision: Well Approximated Closure Type: Surgical Glue - Maternal Morbidity 59. Maternal Morbidity (serious complications experinced by the mother associated with labor and delivery: None of the above - Lochia Lochia Amount: Scant < 10 ml Lochia Color: Rubra/Red - Abdomen Description: Tender, Soft, Round Hernia Present: No Fundal Description: Firm, Midline Fundal Height: u/u - u/2 Objective-Diagnostic Laboratory: 03/05/20 16:38 03/05/20 16:38 03/05/20 03/05/20 16:38 16:38 WBC 20.8 H RBC 3.84 Hgb 11.4 L Hct 33.8 L MCV 88 MCH 29.6 MCHC 33.6 RDW 14.6 H Plt Count 231 Sodium 137.2 Potassium 3.7 Chloride 108 H Carbon Dioxide 24 Anion Gap 5 BUN 7 Creatinine 0.64 Est GFR ( Amer) > 60 Glucose 81 Calcium 8.5 Assessment and Plan(PN) - Assessment and Plan (1) Encounter for induction of labor Is this a current diagnosis for this admission?: Yes (2) Non-reassuring heart tones, delivered, current hospitalization Is this a current diagnosis for this admission?: Yes (3) S/P primary low transverse Is this a current diagnosis for this admission?: Yes - Time Spent with Patient Time with patient: Less than 15 minutes Medications reviewed and adjusted accordingly: Yes - Disposition Anticipated Discharge Disposition: Home, Self Care Anticipated Discharge Timeframe: within 24 hours
[2020-03-06] MEDS: DOCUSATE SODIUM 100 MG CAPSULE PO SCH ×2 (10:15→18:58)
[2020-03-06] MEDS: OXYCODONE-ACETAMINOPHEN 5-325 MG TABLET PO PRN ×2 (10:15→16:56)
[2020-03-06] MEDS: PRENATAL VITAMIN W DHA CAPSULE PO SCH (10:15)
[2020-03-06] MEDS ORDERED: BISACODYL 10 MG SUPP.RECT PR ONE ×2 (11:30→18:30)
[2020-03-07] MEDS: ZOLPIDEM TARTRATE 5 MG TABLET PO PRN (01:15)
[2020-03-07] MEDS: SIMETHICONE 80 MG TAB.CHEW PO PRN (01:24)
[2020-03-07] MEDS: IBUPROFEN 800 MG TABLET PO SCH (05:14)
[2020-03-07 09:04] LABS: HEMATOCRIT 29.9 % (36.0-47.0); HEMOGLOBIN 10.4 g/dL (12.0-15.5); MEAN CORPUSCULAR HEMOGLOBIN 30.6 pg (27.0-33.4); MEAN CORPUSCULAR HGB CONC 34.9 g/dL (32.0-36.0); MEAN CORPUSCULAR VOLUME 88 fl (80-97); PLATELET COUNT 280 10^3/uL (150-450); RED BLOOD COUNT 3.41 10^6/uL (3.72-5.28); RED CELL DISTRIBUTION WIDTH 13.7 % (11.5-14.0); WHITE BLOOD COUNT 9.2 10^3/uL (4.0-10.5)
--- NOTE | 2020-03-07 09:36 | PDOC PROGRESS REPORT ---
Subjective-OB Progress Note for:: 03/07/20 Subjective: doing better, having liquid stool, gas better, eating and drinking Physical Exam (OB) Vital Signs: Temp Pulse Resp BP Pulse Ox 97.6 F 95 18 109/67 100 03/07/20 07:32 03/07/20 07:32 03/07/20 07:32 03/07/20 07:32 03/07/20 07:32 Intake & Output 03/06/20 03/07/20 03/08/20 06:59 06:59 06:59 Intake Total 1260 1600 Balance 1260 1600 - PIH/Pre-Eclampsia DTR's: 1 + Clonus: Negative Headache: Absent Epigastric Pain: No Visual Changes: No - Dressing Removed: No Incision: Well Approximated Closure Type: Surgical Glue - Maternal Morbidity 59. Maternal Morbidity (serious complications experinced by the mother associated with labor and delivery: None of the above - Lochia Lochia Amount: Scant < 10 ml Lochia Color: Rubra/Red - Abdomen Description: Soft, Round Hernia Present: No Fundal Description: Firm, Midline Fundal Height: u/u - u/2 Objective-Diagnostic Laboratory: 03/07/20 08:14 03/05/20 16:38 03/07/20 08:14 WBC 9.2 RBC 3.41 L Hgb 10.4 L Hct 29.9 L MCV 88 MCH 30.6 MCHC 34.9 RDW 13.7 Plt Count 280 Assessment and Plan(PN) - Assessment and Plan (1) Encounter for induction of labor Is this a current diagnosis for this admission?: Yes (2) Non-reassuring heart tones, delivered, current hospitalization Is this a current diagnosis for this admission?: Yes (3) S/P primary low transverse Is this a current diagnosis for this admission?: Yes - Time Spent with Patient Time with patient: Less than 15 minutes Medications reviewed and adjusted accordingly: Yes - Disposition Anticipated Discharge Disposition: Home, Self Care Anticipated Discharge Timeframe: within 24 hours - spoke with Duarte Kilpatrick ok to discharge home
[2020-03-07] MEDS: PRENATAL VITAMIN W DHA CAPSULE PO SCH (09:41)
[2020-03-07] MEDS: DOCUSATE SODIUM 100 MG CAPSULE PO SCH (09:41)
--- NOTE | 2020-03-07 09:41 | PDOC DISCHARGE SUMMARY ---
Impression - Admit/DC Date/PCP Admission Date/Primary Care Provider: 03/02/20 17:47 BRUCE NIELSEN MD Discharge Date: 03/07/20 - Discharge Diagnosis (1) Encounter for induction of labor Is this a current diagnosis for this admission?: Yes (2) Non-reassuring heart tones, delivered, current hospitalization Is this a current diagnosis for this admission?: Yes (3) S/P primary low transverse Is this a current diagnosis for this admission?: Yes - Additional Information Resuscitation Status: Full Code Discharge Diet: As Tolerated, Regular Discharge Activity: Activity As Tolerated, No Lifting Over 10 Pounds, No Lifting/Push/Pulling, Pelvic Rest, No tub bath, Walk Frequently Referrals: BRUCE NIELSEN MD [Primary Care Provider] - (RTC 1 week) Prescriptions: Oxycodone HCl/Acetaminophen [Percocet 5-325 mg Tablet] 1 tab PO Q4HP PRN #20 tablet PRN Reason: Ibuprofen [Motrin 800 mg Tablet] 800 mg PO Q8 #60 tablet Home Medications: Pnv No.95/Ferrous Fum/Folic AC [ Caplet] 1 tab PO DAILY 03/02/20 Ibuprofen [Motrin 800 mg Tablet] 800 mg PO Q8 #60 tablet 03/05/20 Oxycodone HCl/Acetaminophen [Percocet 5-325 mg Tablet] 1 tab PO Q4HP PRN #20 tablet 03/05/20 Vit/Dha [ Multi + Dha Capsule] 1 cap PO DAILY capsule 03/05/20 Simethicone [Mylicon 80 mg Chewable Tablet] 80 mg PO QIDP PRN tab.chew 03/05/20 HPI Gestational Age: 40.6 Reason(s) for Admission: Induction of Labor Procedures: NST, Ultrasound Intrapartum Procedure(s): : Low Cervical, Transverse Hospital Course Hospital Course: post op gas 59. Maternal Morbidity (serious complications experinced by the mother associated with labor and delivery: None of the above Results Laboratory Results: WBC 9.2 10^3/uL (4.0-10.5) 03/07/20 08:14 RBC 3.41 10^6/uL (3.72-5.28) L 03/07/20 08:14 Hgb 10.4 g/dL (12.0-15.5) L 03/07/20 08:14 Hct 29.9 % (36.0-47.0) L 03/07/20 08:14 MCV 88 fl (80-97) 03/07/20 08:14 MCH 30.6 pg (27.0-33.4) 03/07/20 08:14 MCHC 34.9 g/dL (32.0-36.0) 03/07/20 08:14 RDW 13.7 % (11.5-14.0) 03/07/20 08:14 Plt Count 280 10^3/uL (150-450) 03/07/20 08:14 Lymph % (Auto) 17.3 % (13-45) 03/02/20 18:26 [place] % (Auto) 7.1 % (3-13) 03/02/20 18:26 Eos % (Auto) 0.9 % (0-6) 03/02/20 18:26 Baso % (Auto) 0.5 % (0-2) 03/02/20 18:26 Absolute Neuts (auto) 9.0 10^3/uL (1.7-8.2) H 03/02/20 18:26 Absolute Lymphs (auto) 2.1 10^3/uL (0.5-4.7) 03/02/20 18:26 Absolute Monos (auto) 0.9 10^3/uL (0.1-1.4) 03/02/20 18:26 Absolute Eos (auto) 0.1 10^3/uL (0.0-0.6) 03/02/20 18:26 Absolute Basos (auto) 0.1 10^3/uL (0.0-0.2) 03/02/20 18:26 Seg Neutrophils % 74.2 % (42-78) 03/02/20 18:26 PT 13.3 SEC (11.4-15.4) 03/05/20 16:38 INR 0.99 03/05/20 16:38 APTT 30.4 SEC (23.5-35.8) 03/05/20 16:38 Sodium 137.2 mmol/L (137-145) 03/05/20 16:38 Potassium 3.7 mmol/L (3.6-5.0) 03/05/20 16:38 Chloride 108 mmol/L (98-107) H 03/05/20 16:38 Carbon Dioxide 24 mmol/L (22-30) 03/05/20 16:38 Anion Gap 5 (5-19) 03/05/20 16:38 BUN 7 mg/dL (7-20) 03/05/20 16:38 Creatinine 0.64 mg/dL (0.52-1.25) 03/05/20 16:38 Est GFR ( Amer) > 60 (>60) 03/05/20 16:38 Est GFR (MDRD) Non-Af > 60 (>60) 03/05/20 16:38 Glucose 81 mg/dL (75-110) 03/05/20 16:38 Calcium 8.5 mg/dL (8.4-10.2) 03/05/20 16:38 Urine Color YELLOW 03/02/20 18:08 Urine Appearance CLEAR 03/02/20 18:08 Urine pH 6.0 (5.0-9.0) 03/02/20 18:08 Ur Specific [place] 1.011 03/02/20 18:08 Urine Protein NEGATIVE mg/dL (NEGATIVE) 03/02/20 18:08 Urine Glucose (UA) NEGATIVE mg/dL (NEGATIVE) 03/02/20 18:08 Urine Ketones NEGATIVE mg/dL (NEGATIVE) 03/02/20 18:08 Urine Blood NEGATIVE (NEGATIVE) 03/02/20 18:08 Urine Nitrite NEGATIVE (NEGATIVE) 03/02/20 18:08 Urine Bilirubin NEGATIVE (NEGATIVE) 03/02/20 18:08 Urine Urobilinogen NEGATIVE mg/dL (<2.0) 03/02/20 18:08 Ur Leukocyte Esterase NEGATIVE (NEGATIVE) 03/02/20 18:08 Urine Ascorbic Acid NEGATIVE (NEGATIVE) 03/02/20 18:08 Urine Opiates Screen NEGATIVE 03/02/20 18:08 Urine Methadone Screen NEGATIVE 03/02/20 18:08 Ur Barbiturates Screen NEGATIVE 03/02/20 18:08 Ur Phencyclidine Scrn NEGATIVE 03/02/20 18:08 Ur Amphetamines Screen NEGATIVE 03/02/20 18:08 U Benzodiazepines Scrn NEGATIVE 03/02/20 18:08 Urine Cocaine Screen NEGATIVE 03/02/20 18:08 U Marijuana (THC) Screen NEGATIVE 03/02/20 18:08 RPR NONREACTIVE (NONREACTIVE) 03/02/20 18:26 Blood Type O POSITIVE 03/02/20 18:26 Antibody Screen NEGATIVE 03/02/20 18:26 Impressions: Abdomen/Pelvis CT 03/05/20 17:35 IMPRESSION: Diffusely enlarged uterus consistent with recent status. Prominent uterine vasculature. A small amount of air within the endometrial canal, however the endometrium is poorly defined. Inflammatory changes in the pelvis, which may be postoperative in nature. Developing infectious or inflammatory process is not excluded. Trace of hyperdense free fluid along the right paracolic gutter, consistent with a trace of hemoperitoneum. Subcutaneous air along the anterior pelvic wall consistent with . Tiny left pleural effusion. Developing anasarca is suspected.. TECHNICAL DOCUMENTATION: Quality ID # [id number]: Final reports with documentation of one or more dose reduction techniques (e.g., Automated exposure control, adjustment of the mA and/or kV according to patient size, use of iterative reconstruction technique) copyright 2011 [employer]- All Rights Reserved Plan Health Concerns: lack of help at home Plan of Treatment: discharge home, has a friend to pick her up, rev S&S to report Goals: no complications Time Spent: Less than 30 Minutes
[2020-03-07 11:26] VITALS: BP 124/70
== END 2020-03-07 14:20 | disposition home or self-care (01) | DRG 788 ==
LOC: LR 17:47 → 2S 03-03 23:25
PROVIDERS: ADMIT Obstetrics & Gynecology; ATTEND Obstetrics & Gynecology
PROC: 10D00Z1 Extraction of Products of Conception, Low, Open Approach (ICD-10-PCS; principal; 2020-03-03)
DX: O48.0 Post-term pregnancy (principal); Z3A.41 41 weeks gestation of pregnancy; O76 Abnormality in fetal heart rate and rhythm complicating labor and delivery; Z37.0 Single live birth; Z14.8 Genetic carrier of other disease
CPT/HCPCS: 1967; 1968; 36415; 74177; 80048; 80307; 81005; 85025; 85027; 85610; 85730; 86592; 86850; 86900; 86901; 88307; 94760; 94799; 99140; J0131; J0690; J1885; J2060; J2210; J2250; J2270; J2405; J2550; J2590; J2704; J2795; J3010; J3490; J7120